=== PATIENT | male | born 2000 | race Hispanic/Latino ===

== ENCOUNTER 2025-05-23 08:06 | Emergency (ER) | payer OTHER ==
[~2025-05-23] VITALS: Ht 167.6 cm; Wt 97.5 kg
[2025-05-23 08:52] LABS: BASO # 0.0 10^3/uL (0.0-0.2); BASO % 0.2 % (0.0-1.0); EOS # 0.0 10^3/uL (0.0-0.5); EOS % 0.1 % (0.0-3.0); LYMPH # 0.4 10^3/uL (1.5-5.0); LYMPH % 2.3 % (24.0-44.0); MONO # 0.6 10^3/uL (0.0-0.8); MONO % 3.0 % (2.0-8.0); NEUTROPHILS # 17.5 10^3/uL (1.5-8.5); NEUTROPHILS % 94.0 % (36.0-66.0); PLATELET COUNT, AUTOMATED 222 10^3/uL (150-450)
[2025-05-23] MEDS: ONDANSETRON 4MG/2ML VIAL IV ONE (08:52)
[2025-05-23] MEDS: NS (Normal Saline) 0.9% 1,000 ML IV ONE (08:53)
[2025-05-23 09:25] LABS: ALT/SGPT 28.0 U/L (7.0-40); AST/SGOT 18.0 U/L (<34)
[2025-05-23] MEDS ORDERED: ONDA-282 PO (13:19)
[2025-05-23 13:27] VITALS: BP 116/78; TEMP 99.1; O2SAT 99
== END 2025-05-23 13:30 | disposition home or self-care (01) ==
LOC: M ED 08:06
DX: R11.2 Nausea with vomiting, unspecified (principal); R19.7 Diarrhea, unspecified; J45.909 Unspecified asthma, uncomplicated; F17.200 Nicotine dependence, unspecified, uncomplicated; F12.10 Cannabis abuse, uncomplicated; Z79.899 Other long term (current) drug therapy
CPT/HCPCS: 80047; 80076; 83690; 85025; 87507; 96374; 99284; J2405